=== PATIENT | male | born 1980 | race Hispanic/Latino ===

== ENCOUNTER 2017-05-08 14:08 | Emergency (ER) | payer OTHER | END 2017-05-08 15:03 | disposition left against medical advice (07) | LOC: C.ER 14:08 | DX: Z02.89 Encounter for other administrative examinations (principal) ==

== ENCOUNTER 2017-05-09 15:24 | Inpatient (IN) | payer MEDICAID, OTHER ==
--- NOTE | 2017-05-09 17:22 | C.PDOC ---
History Of Present Illness 37yo male, presents to ED for detox from heroin. 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 Patient denies fever, chills, chest pain, shortness of breath, abdominal pain. He also denies any suicidal or homidical ideation. No other complaints. Time Seen by Provider: 05/09/17 16:43 Chief Complaint (Nursing): Substance Abuse History Per: Patient History/Exam Limitations: no limitations Modifying Factor(s): Narcotics Past Medical History Reviewed: Historical Data, Nursing Documentation, Vital Signs Vital Signs: Last Vital Signs Temp 98.5 F 05/09/17 16:41 Pulse 82 05/09/17 16:41 Resp 18 05/09/17 16:41 BP 107/67 05/09/17 16:41 Pulse Ox 98 05/09/17 17:25 - Medical History PMH: Kidney Stones Surgical History: No Surg Hx Family History: States: No Known Family Hx - Social History Hx Alcohol Use: No Hx Substance Use: Yes (heroin) - Immunization History Hx Tetanus Toxoid Vaccination: No Hx Influenza Vaccination: No Hx Pneumococcal Vaccination: No Review Of Systems Except As Marked, All Systems Reviewed And Found Negative. Constitutional: Negative for: Fever, Chills Cardiovascular: Negative for: Chest Pain Respiratory: Negative for: Shortness of Breath Gastrointestinal: Negative for: Abdominal Pain Psych: Negative for: Suicidal ideation Physical Exam - Physical Exam Appears: No Acute Distress Skin: Warm, Dry Head: Atraumatic, Normacephalic Eye(s): bilateral: Normal Inspection Neck: Normal ROM, Supple Chest: Symmetrical Cardiovascular: Rhythm Regular Respiratory: Normal Breath Sounds, No Wheezing Gastrointestinal/Abdominal: Normal Exam, Bowel Sounds, Soft, No Tenderness Back: Normal Inspection Extremity: Normal ROM Neurological/Psych: Oriented x3 ED Course And Treatment - Laboratory Results Result Diagrams: 05/09/17 17:37 05/09/17 17:37 O2 Sat by Pulse Oximetry: 98 (RA) Pulse Ox Interpretation: Normal Medical Decision Making Medical Decision Making: Impression: Substance abuse Plan: -- Discussed with crisis who will evaluate patient. -- Labs Time: [address] Winters for detox. Disposition - Disposition Forms: [employer] (Taiwanese) - Scribe Statement The provider has reviewed the documentation as recorded by the Scribe (Effie Zaidi) Provider Attestation: All medical record entries made by the Scribe were at my direction and personally dictated by me. I have reviewed the chart and agree that the record accurately reflects my personal performance of the history, physical exam, medical decision making, and the department course for this patient. I have also personally directed, reviewed, and agree with the discharge instructions and disposition.
[2017-05-09 17:41] LABS: BASO # 0.1 K/uL (0.0-0.2); BASO % 0.6 % (0.0-2.0); EOS # 0.1 K/uL (0.0-0.7); EOS % 0.9 % (0.0-4.0); HEMOGLOBIN 14.3 g/dL (12.0-18.0); LYMPH # 2.8 K/uL (1.0-4.3); LYMPH % 23.4 % (20.0-40.0); MEAN CELL VOLUME 85.6 fL (80.0-94.0); MEAN CORPUSCULAR HEMOGLOBIN 29.3 pg (27.0-31.0); MEAN CORPUSCULAR HGB CONC 34.2 g/dL (33.0-37.0); MEAN PLATELET VOLUME 8.3 fL (7.2-11.7); MONO # 0.8 K/uL (0.0-0.8); MONO % 6.9 % (0.0-10.0); NEUT # 8.1 K/uL (1.8-7.0); NEUT % 68.2 % (50.0-75.0); RBC 4.9 Mil/uL (4.40-5.90); RED CELL DISTRIBUTION WIDTH 13.8 % (11.5-14.5); WHITE BLOOD COUNT 11.8 K/uL (4.8-10.8)
[2017-05-09 17:52] LABS: ALB/GLOB RATIO 1.4 (1.0-2.1); ALBUMIN 4.1 g/dL (3.5-5.0); ALT/SGPT 25 U/L (21-72); AST/SGOT 21 U/L (17-59); BLOOD UREA NITROGEN 9 mg/dL (9-20); CALCIUM 8.9 mg/dl (8.6-10.4); GFR AFRICAN-AMERICAN > 60; GFR NON-AFRICAN AMERICAN > 60
[2017-05-09 17:59] LABS: URINE BACTERIA RARE (<OCC); URINE BILIRUBIN NEGATIVE (NEGATIVE); URINE CLARITY Hazy (Clear); URINE COLOR Yellow (YELLOW); URINE GLUCOSE (UA) NORMAL (Normal); URINE LEUKOCYTE ESTERASE NEG Leu/uL (Negative); URINE NITRATE NEGATIVE (NEGATIVE); URINE PROTEIN NEGATIVE (NEGATIVE)
[2017-05-09 18:00] LABS: URINE BLOOD 1+ (NEGATIVE)
[2017-05-09 18:09] LABS: BENZODIAZEPINES, UR NEGATIVE (NEGATIVE); PHENCYCLIDINE, UR NEGATIVE (NEGATIVE)
[2017-05-09 18:25] LABS: BARBITURATES, UR NEGATIVE (NEGATIVE)
[2017-05-09 18:44] LABS: OPIATES, UR POSITIVE (NEGATIVE)
[2017-05-09] MEDS ORDERED: Potassium Chloride 20 mEq ER Tab PO STA (18:48)
--- NOTE | 2017-05-09 19:26 | PCM.BM ---
<Cristela Maloney - Last Filed: 05/09/17 19:25> Treatment Plan Problems - Problems identified on initial assessmt potiential for opiate withdrawal Date Initiated: 05/09/17 Time Initiated: 19:26 Assessment reference: NA Status: Active Treatment assets and liabiliti Patient Assests: ADL independent, physically healthy Patient Liabilities: substance abuse - Milieu Protocol Maintain good personal hygiene: daily Encourage regular showers, daily Remind patient to perform daily oral care, daily Assist patient to perform ADL's Maintain personal safety: every shift Educate patient to report safety concerns to staff, every shift Monitor environment for contraband/sharps Medication safety: Monitor for expected outcome, potential side effects: every shift, Assess barriers to learning: every shift, Assess readiness for medication education: every shift <Carrol Jarrett - Last Filed: 05/10/17 15:09> - Diagnosis (1) Opioid use disorder, severe, dependence Status: Acute Interventions: 05/10/17 15:09 * Assess 7x/week regarding severity of withdrawal * Educate regarding risks, benefits, side effects and alternatives of medications * Use Motivational Interviewing for abstinence * Use CBT for relapse prevention * Medication management for withdrawal symptoms * Encourage medication assisted treatment * <Isabela Waller - Last Filed: 05/11/17 11:37> Family Contact Family involvement: Ishanliy/SO not involved Family contact: Patient declines to allow family contact at present - Goals for Treatment Patient goals for treatment: Complete detox and apply for short-term rehab. Discharge/Continuing Care - Education Needs Education Needs: Patient Medication, Patient Diagnosis/Disease Process, Patient Coping Skills, Patient Anger Management skills, Patient Placement options, Patient Community resources - Discharge Discharge Criteria: No longer exhibiting s/s of withdrawal, Reduction of target symptoms Discharge to:: Substance Abuse Rehab - Treatment Team Participation Patient/Family/SO Statement: 05/11/17 11:36 " I wanna go to short term rehab from here." Discussed with Family/SO: No Was Patient/Family/SO present at Treatment Team Meeting: Yes
[2017-05-10 13:58] LABS: ALB/GLOB RATIO 1.3 (1.0-2.1); ALBUMIN 4.7 g/dL (3.5-5.0); ALT/SGPT 28 U/L (21-72); AST/SGOT 26 U/L (17-59); BLOOD UREA NITROGEN 9 mg/dL (9-20); CALCIUM 9.6 mg/dl (8.6-10.4); GFR AFRICAN-AMERICAN > 60; GFR NON-AFRICAN AMERICAN > 60
[2017-05-10 14:41] LABS: HEPATITIS B SURFACE AG Negative (NEGATIVE)
[2017-05-10 14:47] LABS: HEPATITIS A IGM NEGATIVE (NEGATIVE); HEPATITIS B CORE AB NEGATIVE (NEGATIVE)
[2017-05-10] MEDS ORDERED: Buprenorphine Hydrochloride 2 mg SL ONE ×2 (14:54→15:55)
[2017-05-10 14:59] LABS: HEPATITIS C ANTIBODY NEGATIVE (NEGATIVE)
--- NOTE | 2017-05-10 15:09 | PCM.PSYCH ---
Initial Psychiatric Evaluation - Initial Psychiatric Evaluation Type of Admission: Voluntary Legal Status: Capacity History of Present Illness and Precipitating Events: The patient is seen, chart reviewed and case discussed. This is a 27-year-old male, with 3 children aged 10, 15 and 19. The patient is unemployed and homeless. He is using 20 bags of heroin mostly intranasal, sometimes IV. He says his been using heroin for 3 years but he used painkillers 9 years prior to that. He also smokes marijuana "occasionally" and cigarettes 1-1/2 pack per day. He denies all other drugs and alcohol. This is his first detox as he stayed only one day in another detox in the past. He has never been to rehabilitation or NA. Past psych history: Denies Family psych history: Denies Medical history: Kidney stones regularly. Current Medications: Active Medications Generic Name Dose Route Start Last Admin Trade Name Freq PRN Reason Stop Dose Admin Buprenorphine HCl 6 mg 05/10/17 15:55 Subutex SL 05/10/17 15:56 ONCE ONE Clonidine HCl 0.1 mg 05/09/17 19:27 Catapres PO Q8 PRN opiate withdrawal Hydroxyzine HCl 25 mg 05/09/17 19:28 Atarax PO Q8 PRN Anxiety Nicotine 1 patch 05/10/17 10:00 05/10/17 09:31 Nicoderm Cq TD 1 patch DAILY BRENDAN Administration Trazodone HCl 50 mg 05/09/17 19:28 Desyrel PO HS PRN Insomnia Past Psychiatric History - Past Psychiatric History Previous Treatment History: None Pertinent Medical Hx (Current Medical&Sleep Prob, Allergies): Allergies Allergy/AdvReac Type Severity Reaction Status Date / Time No Known Allergies Allergy Verified 05/09/17 16:13 RX: No Known Home Med 05/09/17 Review of Systems - Neurological Neurological: UNREMARKABLE - Psychiatric Psychiatric: Abnormal Sleep Pattern, Anxiety, Difficulty Concentrating, Irritability. absent: Hallucinations, Homicidal Ideation, Suicidal Ideation Mental Status Examination - Personal Presentation Personal Presentation: Looks stated age - Affect Affect: Constricted - Motor Activity Motor Activity: Calm - Reliability in Providing Information Reliability in Providing Information: Good - Speech Speech: Organized - Mood Mood: Anxious - Formal Thought Process Formal Thought Process: No Impairment - Cognitive Functions Orientation: Person, Place, Situation, Time Sensorium: Alert Attention/Concentration: Attentive Estimate of Intelligence: Average Judgement: Intact, as evidence by: Insight regarding need for hospitalization Memory: Recent intact, as evidence by: Ability to recall events of the day, Remote intact, as evidenced by: Abilit to recall sig. life events - Risk Risk: Diminished functioning - Strength & Assets Inventory Strength & Assets Inventory: Cooperative - Limitations Limitations: Other DSM 5 DX - DSM 5 DSM 5 Diagnosis: Opioid withdrawal Opioid use d/o - severe Cannabis use d/o -mild Tobacco use d/o - severe - Recommended/Plan of Treatment Treatment Recommendations and Plan of Treatment: Subutex detox As needed medications All risks, benefits and alternatives of the meds discussed, and the pt agreed and understood. Attend groups and activities Supportive therapy and psychoeducation [place] for abstinence CBT for relapse prevention Encourage MAT Refer to rehab or IOP, and self-help groups Smoking cessation with [place] Nicotine patch 34 min Projected ELOS: 4-5 days Prognosis: good with treatment - Smoking Cessation Smoking Cessation Initiated: Yes
--- NOTE | 2017-05-11 08:56 | PCM.PYCHPN ---
Psychiatric Progress Note - Psychiatric Progress Note Patient Chief Complaint: feeling okay Problems Identified/Issues Discussed: The pt is seen, chart reviewed, case discussed with staff. The pt is compliant with medications and reports no side-effects. Symptoms are improving but needs more time to stabilize. After care discussed, support and psychoeducation given. Mental Status Examination - Cognitive Function Orientation: Person, Place, Situation, Time - Mood Mood: Anxious - Affect Affect: Constricted - Formal Thought Process Formal Thought Process: No Impairment - Homicidal Ideation Homicidal Ideation: No Goal/Treatment Plan - Goal/Treatment Plan Progress Toward Problem(s) and Goals/Treatment Plan: Opioid use d/o -severe Opioid withdrawal -Subutex -As needed medications -All risks, benefits and alternatives of the meds discussed, and the pt agreed and understood. -Attend groups and activities -Supportive therapy and psychoeducation -[place] for abstinence -CBT for relapse prevention -Encourage MAT -Refer to rehab or IOP, and self-help groups Cannabinoid Use Disorder -[place] and CBT Tobacco Use Disorder -Encourage Smoking Cessation -Nicotine Patch Keri Hooper Dr., DO, PGY-1
[2017-05-11] MEDS: Buprenorphine Hydrochloride 2 mg SL SCH (09:15)
[2017-05-12] MEDS ORDERED: Buprenorphine Hydrochloride 2 mg SL ONE (10:48)
[2017-05-12] MEDS: Buprenorphine Hydrochloride 2 mg SL SCH (10:50)
--- NOTE | 2017-05-12 11:12 | PCM.PYCHPN ---
Psychiatric Progress Note - Psychiatric Progress Note Patient Chief Complaint: feeling okay Problems Identified/Issues Discussed: The pt is seen, chart reviewed, case discussed with staff. The pt is compliant with medications and reports no side-effects. Symptoms are improving but needs more time to stabilize. After care discussed, support and psychoeducation given. Mental Status Examination - Cognitive Function Orientation: Person, Place, Situation, Time Attention: WNL Concentration: WNL Association: WNL Fund of Knowledge: WNL - Mood Mood: Anxious - Affect Affect: Constricted - Speech Speech: Appropriate - Formal Thought Process Formal Thought Process: No Impairment - Suicidal Ideation Suicidal Ideation: No - Homicidal Ideation Homicidal Ideation: No Goal/Treatment Plan - Goal/Treatment Plan Progress Toward Problem(s) and Goals/Treatment Plan: Opioid use d/o -severe Opioid withdrawal -Subutex -As needed medications -All risks, benefits and alternatives of the meds discussed, and the pt agreed and understood. -Attend groups and activities -Supportive therapy and psychoeducation -[place] for abstinence -CBT for relapse prevention -Encourage MAT -Refer to rehab or IOP, and self-help groups Cannabinoid Use Disorder -[place] and CBT Tobacco Use Disorder -Encourage Smoking Cessation -Nicotine Patch MILVIA Jarrett, Keri Tee DO, PGY-1
[2017-05-13] MEDS: Buprenorphine Hydrochloride 2 mg SL SCH (09:44)
--- NOTE | 2017-05-13 12:22 | PCM.PYCHPN ---
Psychiatric Progress Note - Psychiatric Progress Note Patient seen today, length of contact: 16 min Patient Chief Complaint: "OK" Problems Identified/Issues Discussed: The pt is seen, chart reviewed, case discussed with staff. The pt is compliant with medications and reports no side-effects. Symptoms are improving but needs more time to stabilize. After care discussed, support and psychoeducation given. Medication Change: Yes (detox changes daily) Medical Record Reviewed: Yes Mental Status Examination - Cognitive Function Orientation: Person, Place, Situation, Time Memory: Intact Attention: WNL Concentration: WNL Association: WNL Fund of Knowledge: WNL - Mood Mood: Anxious - Affect Affect: Constricted - Speech Speech: Appropriate - Formal Thought Process Formal Thought Process: No Impairment - Suicidal Ideation Suicidal Ideation: No - Homicidal Ideation Homicidal Ideation: No Goal/Treatment Plan - Goal/Treatment Plan Need for Continued Stay: Discharge may exacerbated symptoms, Severe functional impairment Progress Toward Problem(s) and Goals/Treatment Plan: Subutex detox As needed medications All risks, benefits and alternatives of the meds discussed, and the pt agreed and understood. Attend groups and activities Supportive therapy and psychoeducation [place] for abstinence CBT for relapse prevention Encourage MAT Refer to rehab or IOP, and self-help groups Smoking cessation with CT Nicotine patch
--- NOTE | 2017-05-14 08:36 | PCM.PYCHDC ---
Mental Status Examination - Mental Status Examination Orientation: Person, Place, Situation, Time Discharge Summary - Discharge Note Consultations:: List each consultation separately and include: 1. Reason for request. 2. Findings. 3. Follow-up Summary of Hospital Course include:: 1. Description of specific treatment plan utilized for patients during their course of treatmen. 2. Summarize the time- course for resolution of acute symptoms and/or regressed behaviors. 3. Describe issues identified and worked on during hospitalization. 4. Describe medication utilized. 5. Describe medical problems identified and treated. 6. Reassessment of suicide risk Summary of Hospital Course: The patient is seen, chart reviewed and case discussed. This is a 27-year-old male, with 3 children aged 10, 15 and 19. The patient is unemployed and homeless. He is using 20 bags of heroin mostly intranasal, sometimes IV. He says his been using heroin for 3 years but he used painkillers 9 years prior to that. He also smokes marijuana "occasionally" and cigarettes 1-1/2 pack per day. He denies all other drugs and alcohol. This is his first detox as he stayed only one day in another detox in the past. He has never been to rehabilitation or . Past psych history: Denies Family psych history: Denies Medical history: Kidney stones regularly. - Diagnosis (1) Opioid use disorder, severe, dependence Current Visit: Yes Status: Acute - Final Diagnosis (DSM 5) Condition upon Discharge: GOOD Disposition: HOME/ ROUTINE Follow-up Treatment Plan: Subutex detox As needed medications All risks, benefits and alternatives of the meds discussed, and the pt agreed and understood. Attend groups and activities Supportive therapy and psychoeducation [place] for abstinence CBT for relapse prevention Encourage MAT Refer to rehab or IOP, and self-help groups Smoking cessation with [place] Nicotine patch
[2017-05-14] MEDS: Buprenorphine Hydrochloride 2 mg SL SCH (09:18)
[2017-05-14 10:07] VITALS: BP 113/77; PULSE 78; RESP 20; TEMP 98.1; O2SAT 98
== END 2017-05-14 10:25 | disposition home or self-care (01) | DRG 745 ==
LOC: C.ER 15:24 → C.7D 19:05
PROC: HZ52ZZZ Individual Psychotherapy for Substance Abuse Treatment, Cognitive-Behavioral (ICD-10-PCS; principal; 2017-05-09)
PROC: HZ2ZZZZ Detoxification Services for Substance Abuse Treatment (ICD-10-PCS; 2017-05-09)
PROC: HZ42ZZZ Group Counseling for Substance Abuse Treatment, Cognitive-Behavioral (ICD-10-PCS; 2017-05-09)
PROC: HZ59ZZZ Individual Psychotherapy for Substance Abuse Treatment, Supportive (ICD-10-PCS; 2017-05-09)
PROC: HZ56ZZZ Individual Psychotherapy for Substance Abuse Treatment, Psychoeducation (ICD-10-PCS; 2017-05-09)
PROC: HZ46ZZZ Group Counseling for Substance Abuse Treatment, Psychoeducation (ICD-10-PCS; 2017-05-09)
DX: F11.23 Opioid dependence with withdrawal (principal); F12.10 Cannabis abuse, uncomplicated; F17.210 Nicotine dependence, cigarettes, uncomplicated; Z59.0 Homelessness; Z87.442 Personal history of urinary calculi

== ENCOUNTER 2018-08-02 18:59 | Emergency (ER) | payer MEDICAID, OTHER | END 2018-08-03 00:29 | disposition left against medical advice (07) | LOC: C.ER 18:59 ==

== ENCOUNTER 2018-08-06 09:01 | Emergency (ER) | payer MEDICAID ==
--- NOTE | 2018-08-06 09:47 | C.PDOC ---
History Of Present Illness 38 year old male presents to ED requesting detox from heroin. Patient states that he used 5-10 bags per day and he last used at 0500 today. Patient has no medical or psychiatric complaints. Time Seen by Provider: 08/06/18 09:20 Chief Complaint (Nursing): Substance Abuse History Per: Patient History/Exam Limitations: no limitations Onset/Duration Of Symptoms: Other (requesting detox) Suicide/Self Injury Attempted (Context): None Modifying Factor(s): Other (heroin) Associated Symptoms: denies: Suicidal Thoughts, Suicidal Plan Past Medical History Reviewed: Historical Data, Nursing Documentation, Vital Signs Vital Signs: Last Vital Signs Temp 98.5 F 08/06/18 09:10 Pulse 88 08/06/18 09:10 Resp 16 08/06/18 09:10 BP 111/77 08/06/18 09:10 Pulse Ox 96 08/06/18 09:10 Primary Care Provider: FAMILY PROVIDER,NO - Medical History PMH: Kidney Stones, Chronic Kidney Disease Denies: Diabetes, Hepatitis, HIV, HTN, Seizures, Sexually Transmitted Disease Surgical History: No Surg Hx - [facility] DETOXIFICATION SERVICES FOR SUBSTANCE ABUSE TREATMENT (05/09/17) GROUP SUPERVISOR BORDER DEPARTMENT FOR SUBSTANCE ABUSE TREATMENT, PSYCHOEDUCATION (05/09/17) GROUP SUPERVISOR BORDER DEPARTMENT FOR SUBSTANCE ABUSE, COGNITIVE BEHAVIORAL (05/09/17) INDIV PSYCHOTHERAPY FOR SUBSTANCE ABUSE TREATMENT, SUPPORT (05/09/17) INDIV PSYCHOTHERAPY FOR SUBSTANCE ABUSE, COGNITIV BEHAVIORAL (05/09/17) INDIV PSYCHOTHERAPY FOR SUBSTANCE ABUSE, PSYCHOEDUCATION (05/09/17) Family History: States: Unknown Family Hx - Social History Hx Alcohol Use: Yes Hx Substance Use: Yes (heroin) - Immunization History Hx Tetanus Toxoid Vaccination: No Hx Influenza Vaccination: No Hx Pneumococcal Vaccination: No Review Of Systems Constitutional: Negative for: Fever, Chills, Weakness Cardiovascular: Negative for: Chest Pain Respiratory: Negative for: Cough, Shortness of Breath Gastrointestinal: Negative for: Nausea, Vomiting, Abdominal Pain, Diarrhea Musculoskeletal: Negative for: Back Pain Skin: Negative for: Rash Neurological: Negative for: Weakness, Numbness, Headache, Dizziness Psych: Negative for: Suicidal ideation Physical Exam - Physical Exam Appears: Well, Non-toxic, No Acute Distress Skin: Normal Color, Warm, Dry, No Rash Head: Atraumatic, Normacephalic Eye(s): bilateral: Normal Inspection, PERRL, EOMI Neck: Supple Chest: Symmetrical, No Tenderness Cardiovascular: Rhythm Regular, No Murmur Respiratory: No Rales, No Rhonchi, No Wheezing Gastrointestinal/Abdominal: Bowel Sounds (normoactive), Soft, No Tenderness, Other (mild right sided abdominal pain ) Back: No CVA Tenderness Extremity: No Calf Tenderness, Capillary Refill (<2 seconds), No Swelling Extremity: Bilateral: Atraumatic, Normal Color And Temperature, Normal ROM Neurological/Psych: Oriented x3, Normal Speech, Normal Cognition ED Course And Treatment - Laboratory Results Result Diagrams: 08/06/18 10:05 08/06/18 10:05 O2 Sat by Pulse Oximetry: 96 (in RA) Pulse Ox Interpretation: Normal Medical Decision Making Medical Decision Making: Impression: 38 year old male presents to ED requesting detox from heroin. Initial Plan: Labs ordered with drug screen, UA, and CBC Patient s/p kidney stones, lithotripsy, and ureteral stent removal 1322 pt started on cipro, still with +2le and wbc. urine culture sent. recommend stopping cipro, starting on macrobid 100 mg po bid x 7 days. follow culture results. continue flomax. pt with elevated glucose- check again. medicine consult if elevated again. otherwise medically cleared. Disposition Discussed With Dr.: Carrol Jarrett Doctor Will See Patient In The: Hospital - Disposition Disposition: HOSPITALIZED Disposition Time: 13:26 Condition: GOOD Forms: [facility] (Belarusian) - Clinical Impression Clinical Impression: Opioid use disorder, severe, dependence, UTI (urinary tract infection) - PA / INSTRUCTIONAL TECHNOLOGY SPECIALIST / Resident Statement MD/DO has reviewed & agrees with the documentation as recorded. (Lizbet Whatley) - Scribe Statement The provider has reviewed the documentation as recorded by the Scribe (Lizbet Whatley) All medical record entries made by the Scribe were at my direction and personally dictated by me. I have reviewed the chart and agree that the record accurately reflects my personal performance of the history, physical exam, medical decision making, and the department course for this patient. I have also personally directed, reviewed, and agree with the discharge instructions and disposition.
[2018-08-06 10:11] LABS: BASO % 0.3 % (0.0-2.0); EOS # 0.3 K/uL (0.0-0.7); EOS % 4.7 % (0.0-4.0); HEMOGLOBIN 13.2 g/dL (12.0-18.0); LYMPH # 1.1 K/uL (1.0-4.3); LYMPH % 18.4 % (20.0-40.0); MEAN CORPUSCULAR HEMOGLOBIN 29.5 pg (27.0-31.0); MEAN CORPUSCULAR HGB CONC 34.4 g/dL (33.0-37.0); MEAN PLATELET VOLUME 7.8 fL (7.2-11.7); MONO # 0.4 K/uL (0.0-0.8); MONO % 7.6 % (0.0-10.0); RBC 4.49 Mil/uL (4.40-5.90); RED CELL DISTRIBUTION WIDTH 14.3 % (11.5-14.5); WHITE BLOOD COUNT 5.8 K/uL (4.8-10.8)
[2018-08-06 10:18] LABS: MEAN CELL VOLUME 85.6 fL (80.0-94.0)
[2018-08-06 10:20] LABS: URINE BACTERIA OCC (<OCC); URINE BILIRUBIN NEGATIVE (NEGATIVE); URINE BLOOD 1+ (NEGATIVE); URINE CLARITY Hazy (Clear); URINE COLOR Yellow (YELLOW); URINE GLUCOSE (UA) NORMAL (Normal); URINE LEUKOCYTE ESTERASE 2+ Leu/uL (Negative); URINE PROTEIN 2+ mg/dL (NEGATIVE); URINE UROBILINOGEN NORMAL mg/dL (0.2-1.0)
[2018-08-06 10:29] LABS: ALB/GLOB RATIO 1.4 (1.0-2.1); ALBUMIN 3.8 g/dL (3.5-5.0); ALT/SGPT 18 U/L (21-72); AST/SGOT 27 U/L (17-59); BLOOD UREA NITROGEN 8 mg/dL (9-20); GFR NON-AFRICAN AMERICAN > 60
[2018-08-06 10:55] LABS: BARBITURATES, UR NEGATIVE (NEGATIVE); BENZODIAZEPINES, UR NEGATIVE (NEGATIVE); PHENCYCLIDINE, UR NEGATIVE (NEGATIVE)
[2018-08-06 10:57] LABS: OPIATES, UR POSITIVE (NEGATIVE)
--- NOTE | 2018-08-06 13:56 | PCM.BM ---
Treatment Plan Problems - Problems identified on initial assessmt denial Date Initiated: 08/06/18 Time Initiated: 13:54 Assessment reference: NA Status: Active defensive coping Date Initiated: 08/06/18 Time Initiated: 13:55 Assessment reference: NA Status: Active hopelessness Date Initiated: 08/06/18 Time Initiated: 13:55 Assessment reference: NA Status: Active Treatment assets and liabiliti Patient Assests: ADL independent, physically healthy, cognitively intact Patient Liabilities: substance abuse, medical problems - Milieu Protocol Maintain good personal hygiene: daily Encourage regular showers, daily Remind patient to perform daily oral care, daily Assist patient to perform ADL's Conduct patient checks and document Observation sheet: Q15 minutes Maintain personal safety: every shift Educate patient to report safety concerns to staff, every shift Monitor environment for contraband/sharps Medication safety: Monitor for expected outcome, potential side effects: every shift, Assess barriers to learning: every shift, Assess readiness for medication education: every shift
[2018-08-06 15:20] VITALS: BP 112/76; PULSE 78; RESP 18; TEMP 98.4; O2SAT 97
--- NOTE | 2018-08-06 16:42 | PCM.PSYCH ---
Initial Psychiatric Evaluation - Initial Psychiatric Evaluation Type of Admission: Voluntary Legal Status: Capacity Past Psychiatric History - Past Psychiatric History Pertinent Medical Hx (Current Medical&Sleep Prob, Allergies): Allergies Allergy/AdvReac Type Severity Reaction Status Date / Time No Known Allergies Allergy Verified 08/06/18 09:12 Ciprofloxacin [Cipro] 500 mg PO BID 7 Days #14 tab 08/03/18 Tamsulosin [Flomax] 0.4 mg PO DAILY 08/06/18
== END 2018-08-06 14:13 | disposition left against medical advice (07) ==
LOC: C.ER 09:01 → C.7D 13:17 → UNDOADMOB 13:17 → INTOOBSV 13:17 → UNDODISOB 16:45
DX: F11.20 Opioid dependence, uncomplicated (principal); N39.0 Urinary tract infection, site not specified; N18.9 Chronic kidney disease, unspecified